=== PATIENT | female | born 1985 | race Caucasian/White ===

== ENCOUNTER → 2021-10-21 | Outpatient (CLI) | payer OTHER | LOC: EXRD 14:45 | DX: R59.0 Localized enlarged lymph nodes (principal); R19.09 Other intra-abdominal and pelvic swelling, mass and lump | CPT/HCPCS: 76882 ==

== ENCOUNTER → 2022-02-18 | Outpatient (CLI) | payer OTHER | LOC: KOH-I 02-11 16:30 | DX: M54.12 Radiculopathy, cervical region (principal) | CPT/HCPCS: 70490; 73200 ==